=== PATIENT | male | born 1955 | race Caucasian/White ===

== ENCOUNTER 2022-03-25 21:05 | Emergency (ER) | payer OTHER ==
[~2022-03-25] VITALS: Ht 167.6 cm; Wt 63.5 kg
[2022-03-25 21:09] VITALS: BP 144/87
--- NOTE | 2022-03-25 21:30 | NUR ---
PT IS MEDICALLY CLEARED FOR BOOKING AND RELEASED UNDER THE CARE OF [employer] OFFICERS. PT IS IN STABLE CONDITION FOR TRANSPORT. PT IS AMBULATORY ON STEADY GAIT.
== END 2022-03-25 21:31 ==
LOC: ER 21:11
DX: Z60.2 Problems related to living alone